=== PATIENT | female | born 1990 | race Caucasian/White ===

== ENCOUNTER → 2024-12-17 08:00 | Outpatient (REF) | payer BC, SELFPAY | LOC: HWRAD 08:00 | PROVIDERS: ATTENDING PHYSICIAN Student in an Organized Health Care Education/Training Program; FAMILY PHYSICIAN Family Medicine | DX: S12.121A Other nondisplaced dens fracture, initial encounter for closed fracture (principal) | CPT/HCPCS: 72125 ==